=== PATIENT | male | born 1955 | race Caucasian/White ===

== ENCOUNTER 2019-04-24 20:02 | Emergency (ER) | payer OTHER ==
[~2019-04-24] VITALS: Ht 165.1 cm; Wt 68.0 kg
--- NOTE | 2019-04-24 20:12 | NUR ---
Pt ambulated into ER with assistance c/o severe right eye pain /. Pt states had surgery yesterday for retinal attachment. Pt came in with right eye patch in place. No acute distress noted.
--- NOTE | 2019-04-24 20:15 | NUR ---
DR FUNK at bedside for MSE.
[2019-04-24] MEDS ORDERED: HYDROCODONE/APAP 10-325 MG TABLET PO ONE (20:30)
[2019-04-24] MEDS ORDERED: HYDROCODONE/APAP 10-325 MG TABLET ONE (20:33)
[2019-04-24 20:38] VITALS: BP 120/67
--- NOTE | 2019-04-24 20:40 | NUR ---
Patient discharged to home in stable conditon. Written and verbal after care instructions given. Patient verbalizes understanding of instructions. Pt walked out of ER with all belongings.
== END 2019-04-24 20:42 | disposition home or self-care (01) ==
LOC: ER 20:02
DX: G89.18 Other acute postprocedural pain (principal); H57.11 Ocular pain, right eye; Z59.0 Homelessness
CPT/HCPCS: A4663